=== PATIENT | female | born 1935 | race Caucasian/White ===

== ENCOUNTER → 2016-10-09 | Outpatient (CLI) | payer MEDICARE, OTHER | LOC: MW.CHPOD 08:00 | PROVIDERS: ATTEND Podiatrist Foot & Ankle Surgery | DX: M72.2 Plantar fascial fibromatosis (principal); R26.9 Unspecified abnormalities of gait and mobility; M21.40 Flat foot [pes planus] (acquired), unspecified foot; M20.60 Acquired deformities of toe(s), unspecified, unspecified foot | CPT/HCPCS: 99204 ==

== ENCOUNTER → 2016-10-30 | Outpatient (CLI) | payer MEDICARE, OTHER | LOC: MW.CHPOD 08:00 | PROVIDERS: ATTEND Podiatrist Foot & Ankle Surgery | DX: M79.673 Pain in unspecified foot (principal); R60.0 Localized edema; I83.93 Asymptomatic varicose veins of bilateral lower extremities; M72.2 Plantar fascial fibromatosis | CPT/HCPCS: G0463 ==

== ENCOUNTER → 2016-11-06 | Outpatient (CLI) | payer MEDICARE, OTHER | LOC: MW.CHIM 08:00 | PROVIDERS: ATTEND Internal Medicine | DX: I10 Essential (primary) hypertension (principal); M19.90 Unspecified osteoarthritis, unspecified site; M25.562 Pain in left knee; M25.561 Pain in right knee | CPT/HCPCS: 99214 ==

== ENCOUNTER → 2016-12-11 | Outpatient (CLI) | payer MEDICARE, OTHER | LOC: MW.CHIM 10:42 | PROVIDERS: ATTEND Internal Medicine | DX: I10 Essential (primary) hypertension (principal); R42 Dizziness and giddiness; R26.9 Unspecified abnormalities of gait and mobility | CPT/HCPCS: 36415; 80053; 80061; 84443; 85025; 99214 ==

== ENCOUNTER → 2016-12-16 | Outpatient (CLI) | payer MEDICARE, OTHER ==
--- NOTE | 2016-12-16 14:12 | US ---
EXAMINATION: Carotid US with cortes scale and duplex imaging. HISTORY: Dizziness FINDINGS: Ultrasound examination of bilateral cervical carotid arteries was performed using cortes scale and dup ottoniel imaging. Mild scattered atheromatous plaque bilaterally. Antegrade flow is noted within the ve rtebrals. These are the peak velocities in cm per second (systole), right and left respectively, by a comma: CCA (common carotid artery) - 82, 67 ICA (internal carotid artery) - 30, 87 ECA (External carotid artery) - 137, 62 ICA/CCA systolic ratio Right - less than 1 Left - 1.8 IMPRESSION: Mild scattered atheromatous plaque within the carotid arteries without significant elevated velociti es to suggest greater than 50% stenosis.
== END ==
LOC: MW.US 10:53
PROVIDERS: ATTEND Internal Medicine
DX: R73.9 Hyperglycemia, unspecified (principal); R42 Dizziness and giddiness; I65.29 Occlusion and stenosis of unspecified carotid artery; I10 Essential (primary) hypertension; J30.9 Allergic rhinitis, unspecified; R35.1 Nocturia
CPT/HCPCS: 36415; 83036; 93880; 93880-26; 99214

== ENCOUNTER → 2016-12-24 | Outpatient (CLI) | payer MEDICARE, OTHER ==
--- NOTE | 2016-12-24 09:31 | CR ---
EXAMINATION: Two-view chest (PA and Lateral views). HISTORY: Cough. FINDINGS: The trachea is midline. The heart is borderline in size. The cardiomediastinal silhouette is within normal limits. No pulmonary infiltrates, effusions or pneumothorax. Right shoulder replacement hardware noted. IMPRESSION: No acute cardiopulmonary process.
== END ==
LOC: MW.CHIM 08:30
PROVIDERS: ATTEND Internal Medicine
DX: R05 Cough (principal); E11.9 Type 2 diabetes mellitus without complications; F41.9 Anxiety disorder, unspecified; N18.3 Chronic kidney disease, stage 3 (moderate); I12.9 Hypertensive chronic kidney disease with stage 1 through stage 4 chronic kidney disease, or unspecified chronic kidney disease
CPT/HCPCS: 71020; 71020-26; 99214

== ENCOUNTER 2016-12-27 09:55 | Emergency (ER) | payer MEDICARE, OTHER ==
[2016-12-27] MEDS ORDERED: Sodium Chloride 0.9% 10 ML Syringe FLUSH PRN (10:12)
[2016-12-27] MEDS ORDERED: Ketorolac 30 MG/ML SDV IVPUSH ONE (10:12)
[2016-12-27] MEDS ORDERED: Aspirin 81 MG Tab.Chew PO ONE (10:12)
[2016-12-27] MEDS ORDERED: Alum Hydrox/Mag Hydrox/Simeth 15 ML, Metoclopramide 5 MG, Lidocaine 2% 5 ML PO ONE ×3 (10:12)
[2016-12-27] MEDS ORDERED: Sodium Chloride 0.9% 2.5 ML Syringe FLUSH PRN (10:12)
[2016-12-27] MEDS ORDERED: Famotidine 20 MG/2 ML SDV IVPUSH ONE (10:12)
[2016-12-27 10:55] LABS: CHLORIDE,CL 108 mmol/L (98-110); SODIUM,NA 143 mmol/L (136-146)
--- NOTE | 2016-12-27 10:56 | EDM.PDOC ---
ED HPI GENERAL MEDICAL PROBLEM - General Chief Complaint: Cardiovascular Problem Stated Complaint: BLOOD PRESSURE Time Seen by Provider: 12/27/16 10:10 Source of Information: Reports: Patient History Limitations: Reports: No Limitations - History of Present Illness INITIAL COMMENTS - FREE TEXT/NARRATIVE: History of present illness: [9)-year-old female presenting with complaints that she woke up with the blinding headache preceded to get up and take her blood pressure and while she cannot remember the actual number she indicated that the bottom number was greater than 140. Patient indicated she then took her blood pressure medicine and her vitamins later she took her blood pressure again and again will not exactly remembering the numbers she realized that the bottom number again was greater than 100 being approximately 115 to 120. His this time that she called her daughter who brought her in for further evaluation. Patient denies any symptoms indicates that her headache has subsided but that she is concerned about her blood pressure and her daughter desires full evaluation the] Review of systems: As per history of present illness and below otherwise all systems reviewed and negative. Past medical history: As per history of present illness and as reviewed below otherwise noncontributory. Surgical history: As per history of present illness and as reviewed below otherwise noncontributory. Social history: No reported history of drug or alcohol abuse. Family history: As per history of present illness and as reviewed below otherwise noncontributory. Physical exam: HEENT: Atraumatic, normocephalic, pupils reactive, negative for conjunctival pallor or scleral icterus, mucous membranes moist, throat clear, neck supple, nontender, trachea midline. Lungs: Clear to auscultation, breath sounds equal bilaterally, chest nontender. Heart: S1S2, regular, negative for clicks, rubs, or JVD. Abdomen: Soft, nondistended, nontender. Negative for masses or hepatosplenomegaly. Negative for costovertebral tenderness. Pelvis: Stable nontender. Genitourinary: Deferred. Rectal: Deferred. Extremities: Atraumatic, negative for cords or calf pain. Neurovascular unremarkable. Neuro: Awake, alert, oriented. Cranial nerves II through XII unremarkable. Cerebellum unremarkable. Motor and sensory unremarkable throughout. Exam nonfocal. Patient's global assessment is benign save for some amount of hypertension as noted in the vital signs comparison subjective complaint as discussed in the history of present illness. He shouldn't indicates that her headache is significantly better than when this morning prior to taking her blood pressure medicine Diagnostics: [CBC, CMP, chest x-ray, EKG, troponin, BNP] Therapeutics: [Potassium, lites] Impression: [CHF exacerbation] Plan: [Lasix and potassium care followup with Dr. Radha Orozco calling for appointment now] Definitive disposition and diagnosis as appropriate pending reevaluation and review of above. - Related Data Allergies Allergy/AdvReac Type Severity Reaction Status Date / Time No Known Allergies Allergy Verified 12/27/16 09:57 Home Meds: Home Meds ALPRAZolam [Xanax] 0.25 mg PO BID 08/12/16 [History] Ascorbic Acid [Vitamin C] 08/12/16 [History] Aspirin 81 mg PO DAILY 08/12/16 [History] Coconut Oil 08/12/16 [History] Cranberry 08/12/16 [History] Cyanocobalamin (Vitamin B12) [Vitamin B12] 1,000 mcg PO DAILY 08/12/16 [History] DULoxetine [Cymbalta] 30 mg PO DAILY 08/12/16 [History] Diltiazem HCl [Diltiazem ER] 240 mg PO DAILY 08/12/16 [History] Isosorbide Mononitrate [Imdur] 30 mg PO DAILY 08/12/16 [History] Metoprolol Succinate 50 g PO DAILY 08/12/16 [History] Simvastatin [Zocor] 20 mg PO DAILY 08/12/16 [History] Ca Carbonate/Vitamin D3/Vit K [Calcium + D Soft Chewable Tab] 12/27/16 [History ] Montelukast Sodium 10 mg PO DAILY 12/27/16 [History] Omeprazole 40 mg PO DAILY 12/27/16 [History] Valsartan 320 mg PO DAILY 12/27/16 [History] Past Medical History HEENT History: Reports: Hard of Hearing Cardiovascular History: Reports: Hypertension Respiratory History: Reports: None Gastrointestinal History: Reports: GERD Neurological History: Reports: None Psychiatric History: Reports: None Endocrine/Metabolic History: Reports: None Dermatologic History: Reports: None - Infectious Disease History Infectious Disease History: Reports: None - Past Surgical History Female Surgical History: Reports: Hysterectomy Musculoskeletal Surgical History: Reports: Shoulder Surgery Social & Family History - Family History Family Medical History: Noncontributory - Tobacco Use Smoking Status *Q: Never Smoker Second Hand Smoke Exposure: No - Caffeine Use Caffeine Use: Reports: Coffee - Recreational Drug Use Recreational Drug Use: No ED ROS GENERAL - Review of Systems Review Of Systems: See Below (See history of present illness) ED EXAM, GENERAL - Physical Exam Exam: See Below (See history of present illness) Course - Vital Signs Last Recorded V/S: Last Vital Signs Temp 36.7 C 12/27/16 09:57 Pulse 85 12/27/16 11:10 Resp 15 12/27/16 11:10 BP 152/98 H 12/27/16 11:10 Pulse Ox 93 L 12/27/16 11:10 - Orders/Labs/Meds Orders: Active Orders 24 hr Category Date Time Status EKG 12 Lead [EKG Documentation Completion] [RC] STAT Care 12/27/16 10:06 Active Sodium Chloride 0.9% [Saline Flush] Med 12/27/16 10:12 Active 10 ml FLUSH ASDIRECTED PRN Sodium Chloride 0.9% [Saline Flush] Med 12/27/16 10:12 Active 2.5 ml FLUSH ASDIRECTED PRN Saline Lock Insert [OM.PC] Stat Oth 12/27/16 10:12 Ordered Medication Orders Sodium Chloride (Saline Flush) 10 ml FLUSH ASDIRECTED PRN PRN Reason: Keep Vein Open Last Admin: 12/27/16 10:43 Dose: 10 ml Sodium Chloride (Saline Flush) 2.5 ml FLUSH ASDIRECTED PRN PRN Reason: Keep Vein Open Last Admin: 12/27/16 10:43 Dose: 2.5 ml Labs: Laboratory Tests 12/27/16 12/27/16 12/27/16 Range/Units 10:20 10:20 10:20 WBC 10.09 (4.0-11.0) K/uL RBC 3.71 L (4.30-5.90) M/uL Hgb 12.2 (12.0-16.0) g/dL Hct 37.5 (36.0-46.0) % MCV 101.1 H (80.0-98.0) fL MCH 32.9 H (27.0-32.0) pg MCHC 32.5 (31.0-37.0) g/dL RDW Std Deviation 51.1 (28.0-62.0) fl RDW Coeff of [place] 14 (11.0-15.0) % Plt Count 292 (150-400) K/uL MPV 9.60 (7.40-12.00) fL Neut % (Auto) 81.3 H (48.0-80.0) % Lymph % (Auto) 8.3 L (16.0-40.0) % [place] % (Auto) 9.4 (0.0-15.0) % Eos % (Auto) 0.6 (0.0-7.0) % Baso % (Auto) 0.4 (0.0-1.5) % Neut # (Auto) 8.2 H (1.4-5.7) K/uL Lymph # (Auto) 0.8 (0.6-2.4) K/uL [place] # (Auto) 1.0 H (0.0-0.8) K/uL Eos # (Auto) 0.1 (0.0-0.7) K/uL Baso # (Auto) 0.0 (0.0-0.1) K/uL Nucleated RBC % 0.0 /100WBC Nucleated RBCs # 0 K/uL INR 0.98 (0.86-1.11) Sodium 143 (136-146) mmol/L Potassium 3.4 L (3.5-5.1) mmol/L Chloride 108 (98-110) mmol/L Carbon Dioxide 23 (21-31) mmol/L BUN 34 H (6.0-23.0) mg/dL Creatinine 0.9 (0.6-1.5) mg/dL Est Cr Clr Drug Dosing 35.81 mL/min Estimated GFR (MDRD) > 60.0 ml/min Glucose 153 H (60-110) mg/dL Calcium 9.3 (8.8-10.8) mg/dL Total Bilirubin 0.4 (0.1-1.5) mg/dL AST 15 (5-40) IU/L ALT 19 (8-54) IU/L Alkaline Phosphatase 70 (40-150) Troponin I (0.0-0.29) NG/ML B-Natriuretic Peptide (<100) PG/ML Total Protein 6.3 (6.0-8.0) g/dL Albumin 3.8 (3.4-4.8) g/dL Globulin 2.5 (2.0-3.5) g/dL Albumin/Globulin Ratio 1.5 (1.3-2.8) Amylase 42 (10-90) U/L Lipase 29 (7-80) U/L Urine Color Urine Appearance Urine pH (5.0-8.0) Ur Specific [place] (1.001-1.035) Urine Protein (NEGATIVE) mg/dL Urine Glucose (UA) (NEGATIVE) mg/dL Urine Ketones (NEGATIVE) mg/dL Urine Occult Blood (NEGATIVE) Urine Nitrite (NEGATIVE) Urine Bilirubin (NEGATIVE) Urine Urobilinogen (<2.0) EU/dL Ur Leukocyte Esterase (NEGATIVE) Urine RBC (0-2/HPF) Urine WBC (0-5/HPF) Ur Epithelial Cells (NONE-FEW) Urine Bacteria (NEGATIVE) 12/27/16 12/27/16 12/27/16 Range/Units 10:20 10:20 11:45 WBC (4.0-11.0) K/uL RBC (4.30-5.90) M/uL Hgb (12.0-16.0) g/dL Hct (36.0-46.0) % MCV (80.0-98.0) fL MCH (27.0-32.0) pg MCHC (31.0-37.0) g/dL RDW Std Deviation (28.0-62.0) fl RDW Coeff of [place] (11.0-15.0) % Plt Count (150-400) K/uL MPV (7.40-12.00) fL Neut % (Auto) (48.0-80.0) % Lymph % (Auto) (16.0-40.0) % [place] % (Auto) (0.0-15.0) % Eos % (Auto) (0.0-7.0) % Baso % (Auto) (0.0-1.5) % Neut # (Auto) (1.4-5.7) K/uL Lymph # (Auto) (0.6-2.4) K/uL [place] # (Auto) (0.0-0.8) K/uL Eos # (Auto) (0.0-0.7) K/uL Baso # (Auto) (0.0-0.1) K/uL Nucleated RBC % /100WBC Nucleated RBCs # K/uL INR (0.86-1.11) Sodium (136-146) mmol/L Potassium (3.5-5.1) mmol/L Chloride (98-110) mmol/L Carbon Dioxide (21-31) mmol/L BUN (6.0-23.0) mg/dL Creatinine (0.6-1.5) mg/dL Est Cr Clr Drug Dosing mL/min Estimated GFR (MDRD) ml/min Glucose (60-110) mg/dL Calcium (8.8-10.8) mg/dL Total Bilirubin (0.1-1.5) mg/dL AST (5-40) IU/L ALT (8-54) IU/L Alkaline Phosphatase (40-150) Troponin I < 0.10 (0.0-0.29) NG/ML B-Natriuretic Peptide 357 H (<100) PG/ML Total Protein (6.0-8.0) g/dL Albumin (3.4-4.8) g/dL Globulin (2.0-3.5) g/dL Albumin/Globulin Ratio (1.3-2.8) Amylase (10-90) U/L Lipase (7-80) U/L Urine Color YELLOW Urine Appearance CLEAR Urine pH 5.5 (5.0-8.0) Ur Specific [place] 1.025 (1.001-1.035) Urine Protein 30 (NEGATIVE) mg/dL Urine Glucose (UA) NEGATIVE (NEGATIVE) mg/dL Urine Ketones NEGATIVE (NEGATIVE) mg/dL Urine Occult Blood NEGATIVE (NEGATIVE) Urine Nitrite NEGATIVE (NEGATIVE) Urine Bilirubin NEGATIVE (NEGATIVE) Urine Urobilinogen 0.2 (<2.0) EU/dL Ur Leukocyte Esterase NEGATIVE (NEGATIVE) Urine RBC 0-2 (0-2/HPF) Urine WBC 0-2 (0-5/HPF) Ur Epithelial Cells MODERATE (NONE-FEW) Urine Bacteria FEW (NEGATIVE) Meds: Medications Generic Name Dose Route Start Last Admin Trade Name Freq PRN Reason Stop Dose Admin Sodium Chloride 10 ml 12/27/16 10:12 12/27/16 10:43 Saline Flush FLUSH 10 ml ASDIRECTED PRN Administration Keep Vein Open Sodium Chloride 2.5 ml 12/27/16 10:12 12/27/16 10:43 Saline Flush FLUSH 2.5 ml ASDIRECTED PRN Administration Keep Vein Open Discontinued Medications Generic Name Dose Route Start Last Admin Trade Name [place] PRN Reason Stop Dose Admin Aspirin 324 mg 12/27/16 10:12 12/27/16 10:38 Aspirin PO 12/27/16 10:13 324 mg ONETIME ONE Administration Al Hydroxide/Mg Hydroxide 15 0 ml 12/27/16 10:12 12/27/16 10:38 ml/ Metoclopramide HCl 5 mg/ PO 12/27/16 10:13 25 each Lidocaine HCl 5 ml ONETIME ONE Administration Famotidine 20 mg 12/27/16 10:12 12/27/16 10:38 Pepcid IVPUSH 12/27/16 10:13 20 mg ONETIME ONE Administration Furosemide 40 mg 12/27/16 13:27 Lasix PO 12/27/16 13:28 ONETIME ONE Ketorolac Tromethamine 30 mg 12/27/16 10:12 12/27/16 10:38 Toradol IVPUSH 12/27/16 10:13 30 mg ONETIME ONE Administration Potassium Chloride 40 meq 12/27/16 13:28 Klor-Con M20 PO 12/27/16 13:29 ONETIME ONE Departure - Departure Time of Disposition: 13:34 Disposition: Home, Self-Care 01 Condition: good Clinical Impression: CHF exacerbation Referrals: PCP,None [Primary Care Provider] - Forms: ED Department Discharge Additional Instructions: The following information is given to patients seen in the emergency department who are being discharged to home. This information is to outline your options for follow-up care. We provide all patients seen in our emergency department with a follow-up referral. The need for follow-up, as well as the timing and circumstances, are variable depending upon the specifics of your emergency department visit. If you don't have a primary care physician on staff, we will provide you with a referral. We always advise you to contact your personal physician following an emergency department visit to inform them of the circumstance of the visit and for follow-up with them and/or the need for any referrals to a consulting specialist. The emergency department will also refer you to a specialist when appropriate. This referral assures that you have the opportunity for follow-up care with a specialist. All of these measure are taken in an effort to provide you with optimal care, which includes your follow-up. Under all circumstances we always encourage you to contact your private physician who remains a resource for coordinating your care. When calling for follow-up care, please make the office aware that this follow-up is from your recent emergency room visit. If for any reason you are refused follow-up, please contact the [facility] Emergency Department at and asked to speak to the emergency department charge nurse. Followup with Dr. Garcia as discussed Return to ED as needed as discussed - My Orders Last 24 Hours: My Active Orders 12/27/16 10:12 Sodium Chloride 0.9% [Saline Flush] 10 ml FLUSH ASDIRECTED PRN Sodium Chloride 0.9% [Saline Flush] 2.5 ml FLUSH ASDIRECTED PRN Saline Lock Insert [OM.PC] Stat - Assessment/Plan Last 24 Hours: My Active Orders 12/27/16 10:12 Sodium Chloride 0.9% [Saline Flush] 10 ml FLUSH ASDIRECTED PRN Sodium Chloride 0.9% [Saline Flush] 2.5 ml FLUSH ASDIRECTED PRN Saline Lock Insert [OM.PC] Stat
--- NOTE | 2016-12-27 11:01 | CR ---
EXAMINATION: Two-view chest (PA and Lateral views). HISTORY: Chest pain. FINDINGS: The trachea is midline. The heart is borderline in size. The cardiomediastinal silhouette is within normal limits. No pulmonary infiltrates, effusions or pneumothorax. Osseous structures appear osteopenic. Right shoulder hardware is noted. The aorta is tortuous. IMPRESSION: No acute cardiopulmonary process.
[2016-12-27] MEDS ORDERED: Furosemide 40 MG Tab PO ONE (13:27)
[2016-12-27] MEDS ORDERED: Potassium Chloride 20 MEQ Tab.ER PO ONE (13:28)
[2016-12-27 13:59] VITALS: BP 152/92
== END 2016-12-27 13:59 | disposition home or self-care (01) ==
LOC: MW.ED 09:55
DX: I11.0 Hypertensive heart disease with heart failure (principal); I50.9 Heart failure, unspecified; K21.9 Gastro-esophageal reflux disease without esophagitis; Z79.899 Other long term (current) drug therapy; Z90.710 Acquired absence of both cervix and uterus; Z98.890 Other specified postprocedural states; Z79.82 Long term (current) use of aspirin
CPT/HCPCS: 36415; 71020; 80053; 81001; 82150; 83690; 83880; 84484; 85025; 85610; 93005; 96374; 96375; 99284; A9270; J1885; 99283

== ENCOUNTER 2016-12-30 11:06 | Emergency (ER) | payer MEDICARE, OTHER ==
[2016-12-30] MEDS ORDERED: Sodium Chloride 0.9% 2.5 ML Syringe FLUSH PRN ×2 (11:28→11:30)
[2016-12-30] MEDS ORDERED: Sodium Chloride 0.9% 10 ML Syringe FLUSH PRN (11:30)
--- NOTE | 2016-12-30 11:34 | EDM.PDOC ---
ED HPI GENERAL MEDICAL PROBLEM - General Chief Complaint: General Stated Complaint: BP ISSUES Time Seen by Provider: 12/30/16 11:20 Source of Information: Reports: Patient, Family History Limitations: Reports: No Limitations - History of Present Illness INITIAL COMMENTS - FREE TEXT/NARRATIVE: History of present illness: [81-year-old female returns with complaint of elevated blood pressure. Patient was seen by myself a couple days ago in the ED for elevated BP and found to have a slightly elevated BNP. Patient is seen and treated by Dr. Fountain but they were unable to get an appointment until next January 02.] Review of systems: As per history of present illness and below otherwise all systems reviewed and negative. Past medical history: As per history of present illness and as reviewed below otherwise noncontributory. Surgical history: As per history of present illness and as reviewed below otherwise noncontributory. Social history: No reported history of drug or alcohol abuse. Family history: As per history of present illness and as reviewed below otherwise noncontributory. Physical exam: HEENT: Atraumatic, normocephalic, pupils reactive, negative for conjunctival pallor or scleral icterus, mucous membranes moist, throat clear, neck supple, nontender, trachea midline. Lungs: Clear to auscultation, breath sounds equal bilaterally, chest nontender. Heart: S1S2, regular, negative for clicks, rubs, or JVD. Abdomen: Soft, nondistended, nontender. Negative for masses or hepatosplenomegaly. Negative for costovertebral tenderness. Pelvis: Stable nontender. Genitourinary: Deferred. Rectal: Deferred. Extremities: Atraumatic, negative for cords or calf pain. Neurovascular unremarkable. Neuro: Awake, alert, oriented. Cranial nerves II through XII unremarkable. Cerebellum unremarkable. Motor and sensory unremarkable throughout. Exam nonfocal. Diagnostics: [CBC, CMP, EKG, BNP] Therapeutics: [Saline lock] Impression: [Hypertension with a component of CHF chronic] Plan: [Brief run of diuretic and potassium replacement followup with PCP] Definitive disposition and diagnosis as appropriate pending reevaluation and review of above. - Related Data Allergies Allergy/AdvReac Type Severity Reaction Status Date / Time No Known Allergies Allergy Verified 12/27/16 09:57 Home Meds: Home Meds ALPRAZolam [Xanax] 0.25 mg PO BID 08/12/16 [History] Ascorbic Acid [Vitamin C] 08/12/16 [History] Aspirin 81 mg PO DAILY 08/12/16 [History] Coconut Oil 08/12/16 [History] Cranberry 08/12/16 [History] Cyanocobalamin (Vitamin B12) [Vitamin B12] 1,000 mcg PO DAILY 08/12/16 [History] DULoxetine [Cymbalta] 30 mg PO DAILY 08/12/16 [History] Diltiazem HCl [Diltiazem ER] 240 mg PO DAILY 08/12/16 [History] Isosorbide Mononitrate [Imdur] 30 mg PO DAILY 08/12/16 [History] Metoprolol Succinate 50 g PO DAILY 08/12/16 [History] Simvastatin [Zocor] 20 mg PO DAILY 08/12/16 [History] Ca Carbonate/Vitamin D3/Vit K [Calcium + D Soft Chewable Tab] 12/27/16 [History ] Montelukast Sodium 10 mg PO DAILY 12/27/16 [History] Omeprazole 40 mg PO DAILY 12/27/16 [History] Valsartan 320 mg PO DAILY 12/27/16 [History] Potassium Chloride [K-Tab ER] 20 meq PO ASDIRECTED #30 tablet.er 12/30/16 [Rx] hydrALAZINE [Apresoline] 25 mg PO Q12HR #30 tablet 12/30/16 [Rx] Past Medical History HEENT History: Reports: Hard of Hearing Cardiovascular History: Reports: Hypertension Respiratory History: Reports: None Gastrointestinal History: Reports: GERD Neurological History: Reports: None Psychiatric History: Reports: None Endocrine/Metabolic History: Reports: None Dermatologic History: Reports: None - Infectious Disease History Infectious Disease History: Reports: None - Past Surgical History Female Surgical History: Reports: Hysterectomy Musculoskeletal Surgical History: Reports: Shoulder Surgery Social & Family History - Family History Family Medical History: Noncontributory - Tobacco Use Smoking Status *Q: Never Smoker Second Hand Smoke Exposure: No - Caffeine Use Caffeine Use: Reports: None - Recreational Drug Use Recreational Drug Use: No ED ROS GENERAL - Review of Systems Review Of Systems: See Below (History of present illness) ED EXAM, GENERAL - Physical Exam Exam: See Below (History of present illness) Course - Vital Signs Last Recorded V/S: Last Vital Signs Temp 36.9 C 05/29/17 11:25 Pulse 90 12/30/16 14:09 Resp 16 12/30/16 14:09 BP 146/100 H 12/30/16 14:09 Pulse Ox 94 L 12/30/16 14:09 - Orders/Labs/Meds Orders: Active Orders 24 hr Category Date Time Status EKG Documentation Completion [RC] STAT Care 12/30/16 11:30 Active Sodium Chloride 0.9% [Saline Flush] Med 12/30/16 11:30 Active 10 ml FLUSH ASDIRECTED PRN Sodium Chloride 0.9% [Saline Flush] Med 12/30/16 11:28 Active 2.5 ml FLUSH ASDIRECTED PRN Sodium Chloride 0.9% [Saline Flush] Med 12/30/16 11:30 Active 2.5 ml FLUSH ASDIRECTED PRN Saline Lock Insert [OM.PC] Stat Oth 12/30/16 11:30 Ordered Medication Orders Sodium Chloride (Saline Flush) 2.5 ml FLUSH ASDIRECTED PRN PRN Reason: Keep Vein Open Sodium Chloride (Saline Flush) 10 ml FLUSH ASDIRECTED PRN PRN Reason: Keep Vein Open Sodium Chloride (Saline Flush) 2.5 ml FLUSH ASDIRECTED PRN PRN Reason: Keep Vein Open Labs: Laboratory Tests 12/30/16 12/30/16 12/30/16 Range/Units 11:37 11:37 11:37 WBC 10.98 (4.0-11.0) K/uL RBC 4.20 L (4.30-5.90) M/uL Hgb 14.0 (12.0-16.0) g/dL Hct 43.1 (36.0-46.0) % MCV 102.6 H (80.0-98.0) fL MCH 33.3 H (27.0-32.0) pg MCHC 32.5 (31.0-37.0) g/dL RDW Std Deviation 51.9 (28.0-62.0) fl RDW Coeff of Eloisa 14 (11.0-15.0) % Plt Count 328 (150-400) K/uL MPV 9.90 (7.40-12.00) fL Neut % (Auto) 81.1 H (48.0-80.0) % Lymph % (Auto) 10.1 L (16.0-40.0) % [place] % (Auto) 7.4 (0.0-15.0) % Eos % (Auto) 1.0 (0.0-7.0) % Baso % (Auto) 0.4 (0.0-1.5) % Neut # (Auto) 8.9 H (1.4-5.7) K/uL Lymph # (Auto) 1.1 (0.6-2.4) K/uL [place] # (Auto) 0.8 (0.0-0.8) K/uL Eos # (Auto) 0.1 (0.0-0.7) K/uL Baso # (Auto) 0.0 (0.0-0.1) K/uL Nucleated RBC % 0.0 /100WBC Nucleated RBCs # 0 K/uL Sodium 142 (136-146) mmol/L Potassium 3.9 (3.5-5.1) mmol/L Chloride 106 (98-110) mmol/L Carbon Dioxide 25 (21-31) mmol/L BUN 18 (6.0-23.0) mg/dL Creatinine 1.0 (0.6-1.5) mg/dL Est Cr Clr Drug Dosing 35.49 mL/min Estimated GFR (MDRD) 53.3 ml/min Glucose 229 H (60-110) mg/dL Calcium 9.3 (8.8-10.8) mg/dL Total Bilirubin 0.5 (0.1-1.5) mg/dL AST 15 (5-40) IU/L ALT 24 (8-54) IU/L Alkaline Phosphatase 79 (40-150) B-Natriuretic Peptide 303 H (<100) PG/ML Total Protein 6.7 (6.0-8.0) g/dL Albumin 3.9 (3.4-4.8) g/dL Globulin 2.8 (2.0-3.5) g/dL Albumin/Globulin Ratio 1.4 (1.3-2.8) Meds: Medications Generic Name Dose Route Start Last Admin Trade Name Freq PRN Reason Stop Dose Admin Sodium Chloride 2.5 ml 12/30/16 11:28 Saline Flush FLUSH ASDIRECTED PRN Keep Vein Open Sodium Chloride 10 ml 12/30/16 11:30 Saline Flush FLUSH ASDIRECTED PRN Keep Vein Open Sodium Chloride 2.5 ml 12/30/16 11:30 Saline Flush FLUSH ASDIRECTED PRN Keep Vein Open Discontinued Medications Generic Name Dose Route Start Last Admin Trade Name [place] PRN Reason Stop Dose Admin Furosemide 40 mg 12/30/16 12:46 12/30/16 13:00 Lasix IVPUSH 12/30/16 12:47 40 mg NOW ONE Administration Metoprolol Tartrate 5 mg 12/30/16 14:09 Lopressor IVPUSH 12/30/16 14:10 ONETIME ONE Potassium Chloride 40 meq 12/30/16 12:46 12/30/16 13:00 Klor-Con M20 PO 12/30/16 12:47 40 meq ONETIME ONE Administration Departure - Departure Time of Disposition: 14:20 Disposition: Home, Self-Care 01 Condition: good Clinical Impression: Hypertension screening - Discharge Information Prescriptions: hydrALAZINE [Apresoline] 25 mg PO Q12HR #30 tablet Potassium Chloride [K-Tab ER] 20 meq PO ASDIRECTED #30 tablet.er Forms: ED Department Discharge Additional Instructions: The following information is given to patients seen in the emergency department who are being discharged to home. This information is to outline your options for follow-up care. We provide all patients seen in our emergency department with a follow-up referral. The need for follow-up, as well as the timing and circumstances, are variable depending upon the specifics of your emergency department visit. If you don't have a primary care physician on staff, we will provide you with a referral. We always advise you to contact your personal physician following an emergency department visit to inform them of the circumstance of the visit and for follow-up with them and/or the need for any referrals to a consulting specialist. The emergency department will also refer you to a specialist when appropriate. This referral assures that you have the opportunity for follow-up care with a specialist. All of these measure are taken in an effort to provide you with optimal care, which includes your follow-up. Under all circumstances we always encourage you to contact your private physician who remains a resource for coordinating your care. When calling for follow-up care, please make the office aware that this follow-up is from your recent emergency room visit. If for any reason you are refused follow-up, please contact the [facility] Emergency Department at and asked to speak to the emergency department charge nurse. Take medication as directed Followup with Dr. Garcia as discussed Return to ER as needed as discussed - My Orders Last 24 Hours: My Active Orders 12/30/16 11:28 Sodium Chloride 0.9% [Saline Flush] 2.5 ml FLUSH ASDIRECTED PRN 12/30/16 11:30 EKG Documentation Completion [RC] STAT Sodium Chloride 0.9% [Saline Flush] 10 ml FLUSH ASDIRECTED PRN Sodium Chloride 0.9% [Saline Flush] 2.5 ml FLUSH ASDIRECTED PRN Saline Lock Insert [OM.PC] Stat - Assessment/Plan Last 24 Hours: My Active Orders 12/30/16 11:28 Sodium Chloride 0.9% [Saline Flush] 2.5 ml FLUSH ASDIRECTED PRN 12/30/16 11:30 EKG Documentation Completion [RC] STAT Sodium Chloride 0.9% [Saline Flush] 10 ml FLUSH ASDIRECTED PRN Sodium Chloride 0.9% [Saline Flush] 2.5 ml FLUSH ASDIRECTED PRN Saline Lock Insert [OM.PC] Stat
[2016-12-30] MEDS ORDERED: Potassium Chloride 20 MEQ Tab.ER PO ONE (12:46)
[2016-12-30] MEDS ORDERED: Furosemide 40 MG/4 ML VIAL IVPUSH ONE (12:46)
[2016-12-30] MEDS ORDERED: Metoprolol Tartrate 5 MG/5 ML SDV IVPUSH ONE (14:09)
[2016-12-30 15:09] VITALS: BP 149/96
== END 2016-12-30 14:50 | disposition home or self-care (01) ==
LOC: MW.ED 11:06
DX: I10 Essential (primary) hypertension (principal); K21.9 Gastro-esophageal reflux disease without esophagitis; Z13.9 Encounter for screening, unspecified; Z79.82 Long term (current) use of aspirin; Z79.899 Other long term (current) drug therapy; Z90.710 Acquired absence of both cervix and uterus; Z98.890 Other specified postprocedural states
CPT/HCPCS: 36415; 80053; 83880; 85025; 93005; 96374; 96375; 99284; A9270; J1940

== ENCOUNTER 2017-01-24 10:43 | Emergency (ER) | payer MEDICARE, OTHER ==
--- NOTE | 2017-01-24 11:32 | EDM.PDOC ---
ED HPI GENERAL MEDICAL PROBLEM - General Chief Complaint: Lower Extremity Injury/Pain Stated Complaint: PAIN LT LEG Time Seen by Provider: 01/24/17 11:14 - History of Present Illness INITIAL COMMENTS - FREE TEXT/NARRATIVE: HISTORY AND PHYSICAL: History of present illness: The patient is a 82-year-old female with a history of CHF hypertension hypercholesterolemia cardiac arrhythmia--A. liana who follows in our clinic with Dr. Garcia and also with our clerical and office support workers Dr. Cowan; she presents today with complaints of episodic left leg pain that originates in her buttocks and travels down her leg for the last 6 or more months but it has worsened over the last couple of days. Patient tells me that she never feels like her leg is cool and that the pain is intermittent and not necessarily worse with activity or better with activity and will wake her from sleep. Patient denies any numbness to the leg but does have some lumbar back pain that is also not new. The patient had a fall on January 19 and injured her right ankle and foot but says she did not fall on the left side. The patient has had recent studying including a nuclear medicine scan for her heart which I have reviewed as well as an echocardiogram retroperitoneal ultrasound. The patient states she was newly placed on Coumadin about 2 weeks ago due to atrial fibrillation although I got this information from her medical record rather than from the patient. The patient states she has not mentioned this pain to her provider or the clerical and office support workers. She describes the pain as a deep pain but not necessarily bony nervelike or muscular and is vague about what it feels like. She currently rates it as a 2/10. Yesterday she states that it was very severe and she couldn' t even get out of bed and weight-bear due to the discomfort but that is not currently going on. She states that the leg is not weak it is just painful, She takes Tylenol and that seems to make it better. The patient does tell me that she uses a walker at all times and is not very active in general. He denies any complaints of chest pain shortness of breath abdominal pain other extremity discomforts headache or neck pain. Please note that the patient did have x-rays on January 20 after her fall of the right ankle. She currently denies any pain in that area Review of systems: As per history of present illness and below otherwise all systems reviewed and negative. Past medical history: As per history of present illness and as reviewed below otherwise noncontributory. Surgical history: As per history of present illness and as reviewed below otherwise noncontributory. Social history: No reported history of drug or alcohol abuse. Family history: As per history of present illness and as reviewed below otherwise noncontributory. Physical exam: Gen.: Well-developed well-nourished female who is nontoxic and moves easily in the bed. Her vital signs of an reviewed by me HEENT: Atraumatic, normocephalic, negative for conjunctival pallor or scleral icterus, mucous membranes moist, throat clear, neck supple, nontender, trachea midline. Lungs: Clear to auscultation, breath sounds equal bilaterally, chest nontender. No worker breathing or sensory muscle use Heart: S1S2, regular, negative for clicks, rubs, or JVD. Abdomen: Soft, nondistended, nontender. Negative for masses or hepatosplenomegaly. Negative for costovertebral tenderness. Pelvis: Stable nontender. No lateral hip tenderness Genitourinary: Deferred. Rectal: Deferred. Extremities: Atraumatic except for some old ecchymosis seen at the base of the right foot with soft tissue swelling of the foot in the lateral ankle. This is consistent with the patient's fall on January 19, the legs are negative for cords or calf pain. Neurovascular unremarkable. When I palpate the entire left lower extremity there is no compartment tenderness muscle tenderness or swelling erythema ecchymosis or bony deformities. The patient is able to range of motion at both the knee and the hip without discomfort. The patient does have many superficial veins and varicosities. Patient has normal color of her foot and toes on the left and she has a very strong dorsalis pedis pulse to palpation. There is no pedal edema of the left leg or leg asymmetry Neuro: Awake, alert, oriented. Cranial nerves II through XII unremarkable. Cerebellum unremarkable. Motor and sensory unremarkable throughout. Exam nonfocal. Back: There are no midline step-offs tennis or defects of the thoracic or lumbar spine and I am unable to elicit any pain when I palpate the SI joint or the ischial spine. The patient is able to internally and externally rotate at the left hip without triggering the pain Diagnostics: CBC CMP INR EKG x-ray of the left hip and pelvis disc in the lumbar spine arterial Doppler of the left leg Therapeutics: The patient's INR of 3.02 was discussed with our pharmacy as they follow the patient in their Coumadin clinic. The patient is currently taking 5 mg alternating with 2.5 mg continuously and they said that they want her to continue on that dosing and not change it. Patient is aware of this 1312: This case was discussed with the patient's primary provider Dr. Garcia and we have gotten appointment for follow-up with him on at 10:30 AM. He is comfortable having the patient use Tylenol for mild pain and I will give her a few tramadol to try for severe pain. I will also give her a Medrol pack for a brief burst of steroids to see if there is improvement. I discussed all testing results with the patient and family at bedside. She is aware that there is nothing emergent that needs to be addressed but that she will need close follow- up. 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 left leg Pain Score (Numeric/FACES): 2 - Related Data Allergies Allergy/AdvReac Type Severity Reaction Status Date / Time No Known Allergies Allergy Verified 01/24/17 10:58 Home Meds: Home Meds ALPRAZolam [Xanax] 0.25 mg PO BID PRN 08/12/16 [History] Ascorbic Acid [Vitamin C] 08/12/16 [History] Coconut Oil 08/12/16 [History] Cyanocobalamin (Vitamin B12) [Vitamin B12] 1,000 mcg PO DAILY 08/12/16 [History] DULoxetine [Cymbalta] 30 mg PO DAILY 08/12/16 [History] Diltiazem HCl [Diltiazem ER] 240 mg PO DAILY 08/12/16 [History] Isosorbide Mononitrate [Imdur] 30 mg PO DAILY 08/12/16 [History] Metoprolol Succinate 100 mg PO DAILY 08/12/16 [History] Simvastatin [Zocor] 20 mg PO DAILY 08/12/16 [History] Ca Carbonate/Vitamin D3/Vit K [Calcium + D Soft Chewable Tab] 12/27/16 [History ] Montelukast Sodium 10 mg PO BEDTIME 12/27/16 [History] Omeprazole 40 mg PO DAILY 12/27/16 [History] Valsartan 320 mg PO DAILY 12/27/16 [History] Potassium Chloride [K-Tab ER] 20 meq PO ASDIRECTED #30 tablet.er 12/30/16 [Rx] Warfarin [Coumadin] 5 mg PO DAILY 01/24/17 [History] hydrALAZINE [Apresoline] 50 mg PO TID 01/24/17 [History] Past Medical History - Past Health History Medical/Surgical History: Denies Medical/Surgical History HEENT History: Reports: Hard of Hearing Cardiovascular History: Reports: Hypertension, Other (See Below) Other Cardiovascular History: CHF Respiratory History: Reports: None Gastrointestinal History: Reports: GERD Neurological History: Reports: None Psychiatric History: Reports: None Endocrine/Metabolic History: Reports: None Dermatologic History: Reports: None - Infectious Disease History Infectious Disease History: Reports: None - Past Surgical History Female Surgical History: Reports: Hysterectomy Musculoskeletal Surgical History: Reports: Shoulder Surgery Social & Family History - Family History Family Medical History: Noncontributory - Tobacco Use Smoking Status *Q: Never Smoker Second Hand Smoke Exposure: No - Caffeine Use Caffeine Use: Reports: Coffee Caffeine Use Comment: 1 cup daily - Recreational Drug Use Recreational Drug Use: No Review of Systems - Review of Systems Review Of Systems: ROS reveals no pertinent complaints other than HPI. ED EXAM, GENERAL - Physical Exam Exam: See Below (See dictation) Course - Vital Signs Last Recorded V/S: Last Vital Signs Temp 36.4 C 01/24/17 11:05 Pulse 52 L 01/24/17 12:38 Resp 14 01/24/17 12:38 BP 119/81 01/24/17 12:38 Pulse Ox 95 01/24/17 12:38 - Orders/Labs/Meds Orders: Active Orders 24 hr Category Date Time Status EKG Documentation Completion [RC] STAT Care 01/24/17 11:32 Active Art Duplex Lwr Ext Ltd [US] Stat Exams 01/24/17 11:24 Taken Hip Min 2V or 3V w Pelvis Lt [CR] Stat Exams 01/24/17 11:24 Taken Lumbar Spine wo Cont [CT] Stat Exams 01/24/17 11:24 Taken Labs: Laboratory Tests 06/23/17 06/23/17 06/23/17 Range/Units 11:30 11:30 11:30 WBC 11.46 H (4.0-11.0) K/uL RBC 3.80 L (4.30-5.90) M/uL Hgb 12.7 (12.0-16.0) g/dL Hct 38.7 (36.0-46.0) % MCV 101.8 H (80.0-98.0) fL MCH 33.4 H (27.0-32.0) pg MCHC 32.8 (31.0-37.0) g/dL RDW Std Deviation 52.0 (28.0-62.0) fl RDW Coeff of Eloisa 14 (11.0-15.0) % Plt Count 307 (150-400) K/uL MPV 9.80 (7.40-12.00) fL Neut % (Auto) 84.5 H (48.0-80.0) % Lymph % (Auto) 5.9 L (16.0-40.0) % [place] % (Auto) 8.8 (0.0-15.0) % Eos % (Auto) 0.5 (0.0-7.0) % Baso % (Auto) 0.3 (0.0-1.5) % Neut # (Auto) 9.7 H (1.4-5.7) K/uL Lymph # (Auto) 0.7 (0.6-2.4) K/uL [place] # (Auto) 1.0 H (0.0-0.8) K/uL Eos # (Auto) 0.1 (0.0-0.7) K/uL Baso # (Auto) 0.0 (0.0-0.1) K/uL Nucleated RBC % 0.0 /100WBC Nucleated RBCs # 0 K/uL INR 3.02 H (0.86-1.11) Sodium 138 (136-146) mmol/L Potassium 4.1 (3.5-5.1) mmol/L Chloride 106 (98-110) mmol/L Carbon Dioxide 22 (21-31) mmol/L BUN 28 H (6.0-23.0) mg/dL Creatinine 1.2 (0.6-1.5) mg/dL Est Cr Clr Drug Dosing 29.08 mL/min Estimated GFR (MDRD) 43.1 ml/min Glucose 238 H (60-110) mg/dL Calcium 9.1 (8.8-10.8) mg/dL Total Bilirubin 0.4 (0.1-1.5) mg/dL AST 15 (5-40) IU/L ALT 20 (8-54) IU/L Alkaline Phosphatase 80 (40-150) Total Protein 6.5 (6.0-8.0) g/dL Albumin 3.6 (3.4-4.8) g/dL Globulin 2.9 (2.0-3.5) g/dL Albumin/Globulin Ratio 1.2 L (1.3-2.8) Departure - Departure Time of Disposition: 13:15 Disposition: Home, Self-Care 01 Condition: Good Clinical Impression: Left leg pain, Claudication of left lower extremity Degenerative disk disease Qualifiers: Spinal region: lumbar Qualified Code(s): M51.36 - Other intervertebral disc degeneration, lumbar region - Discharge Information Forms: ED Department Discharge Additional Instructions: The following information is given to patients seen in the emergency department who are being discharged to home. This information is to outline your options for follow-up care. We provide all patients seen in our emergency department with a follow-up referral. The need for follow-up, as well as the timing and circumstances, are variable depending upon the specifics of your emergency department visit. If you don't have a primary care physician on staff, we will provide you with a referral. We always advise you to contact your personal physician following an emergency department visit to inform them of the circumstance of the visit and for follow-up with them and/or the need for any referrals to a consulting specialist. The emergency department will also refer you to a specialist when appropriate. This referral assures that you have the opportunity for followup care with a specialist. All of these measure are taken in an effort to provide you with optimal care, which includes your followup. Under all circumstances we always encourage you to contact your private physician who remains a resource for coordinating your care. When calling for followup care, please make the office aware that this follow-up is from your recent emergency room visit. If for any reason you are refused follow-up, please contact the [facility] emergency department at and ask to speak to the emergency department charge nurse. [facility] Primary care- Internal Medicine and Family [place] [phone] Please follow-up with Dr. Garcia in the clinic next at 10:30 AM. Please use medications as prescribed. Please continue [id number] Tylenol use for mild pain and use the tramadol you have been given for severe pain. Return to ER as needed and as discussed. Please keep all your other clinic appointments as previously scheduled. Please continue your Coumadin at the current dosing. - My Orders Last 24 Hours: My Active Orders 01/24/17 11:24 Art Duplex Lwr Ext Ltd [US] Stat Hip Min 2V or 3V w Pelvis Lt [CR] Stat Lumbar Spine wo Cont [CT] Stat 01/24/17 11:32 EKG Documentation Completion [RC] STAT - Assessment/Plan Last 24 Hours: My Active Orders 01/24/17 11:24 Art Duplex Lwr Ext Ltd [US] Stat Hip Min 2V or 3V w Pelvis Lt [CR] Stat Lumbar Spine wo Cont [CT] Stat 01/24/17 11:32 EKG Documentation Completion [RC] STAT
[2017-01-24 13:35] VITALS: BP 105/77
--- NOTE | 2017-01-24 17:02 | CR ---
EXAM DATE: 01/24/17 PATIENT'S AGE: 82 Patient: JEREMÍAS VIDAL Facility: [place], [place] Site . Site : [id number] Study: XRay Hip Left [id number]/23/2017 12:06:46 PM Ordering Physician: Bertram Castaneda Final Report: INDICATION: Lower back and left hip pain TECHNIQUE: AP pelvis and 2 view left hip. COMPARISON: none FINDINGS: The hips are anatomically aligned. There is mild joint space narrowing and reactive hypertrophic spurring within both hips. The sacroiliac joints appear normal. There is no evidence of a fracture or intrinsic bone lesion within the pelvis. The soft tissues appear normal. 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 SACHA
--- NOTE | 2017-01-24 17:05 | CT ---
EXAM DATE: 01/24/17 PATIENT'S AGE: 82 Patient: JEREMÍAS VIDAL Facility: [place], [place] Site . Site : 1935 Study: CT Spine Lumbar [id number]/23/2017 12:14:05 PM Ordering Physician: Bertram Castaneda Final Report: Indication: Back pain. Technique: A CT volumetric acquisition was performed of the lumbar spine without IV contrast. 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 There are vacuum signs noted within the degenerated lumbar discs at all levels. There is accompanying reactive subchondral sclerosis and subchondral cystic change at all lumbar levels. There is also reactive marginal osteophyte formation. At L1-2 there is a lateral disc bulge and hypertrophic spurring. At L2-3 there is also mild disc bulging on the left. At L3-4 there is hypertrophic spurring within the facet joints, right greater than left and there is also a mild left paramedian disc bulge. At L4-5 there is facet hypertrophy produce fever but no disc bulge. At L5-S1 there is facet degeneration and a mild central disc bulge . 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 Please note that all CT scans at this facility use dose modulation, iterative reconstruction, and/or weight-based dosing when appropriate to reduce radiation dose to as low as reasonably achievable. Dictated by Martín Mallory MD @ Jan 24 2017 12:33PM (Electronic Signature) Report Signed by Proxy. SACHA
--- NOTE | 2017-01-27 09:46 | US ---
EXAM DATE: 01/24/17 PATIENT'S AGE: 82 Patient: JEREMÍAS VIDAL Facility: [place], [place] : 1935 Study: US Extremity [id number]/23/2017 12:30:47 PM Ordering Physician: Bertram Castaneda Final Report: DUPLEX ARTERIAL ULTRASOUND LEFT LOWER EXTREMITY, 01/24/17 CLINICAL HISTORY: 82-year-old female with intermittent left lower extremity claudication. COMPARISON: None available. TECHNIQUE: The lower extremity arteries were examined per exam specific protocol with cortes-scale ultrasound, color-flow and Doppler spectral analysis. Peak systolic velocities (PSV), Doppler waveform quality and Velocity Ratios if applicable, were documented at sites per exam specific protocol. FINDINGS: Increased hyperechoic foci with shadowing within the arterial andino are noted, consistent with atherosclerotic peripheral arterial disease. Multiphasic waveforms are seen throughout the entirety of the left lower extremity arterial system without evidence for hemodynamically significant stenosis or occlusion. IMPRESSION: Evidence for diffuse peripheral arterial disease. Widely patent left lower extremity arterial system without evidence for hemodynamically significant stenosis or occlusion. Ian Dillon M.D. [email or web address] MAGALY/dedra D/ KB/Dictated by: Ian Dillon MD @ 01/24/2017 1:37:00 PM (Electronic Signature) Report Signed by Proxy. [facility]
[2017-01-28] MEDS ORDERED: Albuterol 0.083% 2.5 MG/3 ML Neb Soln ONE (13:42)
== END 2017-01-24 13:35 | disposition home or self-care (01) ==
LOC: MW.ED 10:43
DX: I73.9 Peripheral vascular disease, unspecified (principal); M51.36 Other intervertebral disc degeneration, lumbar region; I11.0 Hypertensive heart disease with heart failure; I50.9 Heart failure, unspecified; K21.9 Gastro-esophageal reflux disease without esophagitis; Z90.710 Acquired absence of both cervix and uterus; Z79.01 Long term (current) use of anticoagulants; Z79.899 Other long term (current) drug therapy
CPT/HCPCS: 36415; 72131; 72131-26; 73502-26-LT; 73502-LT; 80053; 85025; 85610; 93005; 93926; 93926-26; 99283; 99284-25